=== PATIENT | male | born 1980 | race Caucasian/White ===

== ENCOUNTER 2025-05-25 11:37 | Emergency (ER) | payer OTHER, SELFPAY ==
[2025-05-25 11:38] VITALS: BP 187/103
--- NOTE | 2025-05-25 11:56 | ED.GENMED ---
History of Present Illness
General
Chief Complaint: Swallowing Problem
Source: patient
Time Seen by Provider: 05/25/25 11:49
History of Present Illness
History of Present Illness:
44-year-old male presents to the emergency room complaining of food stuck in his esophagus. Patient was eating chicken and rice about 30 minutes prior to arrival when he felt like it became stuck in his throat. He has been unable to handle his
secretions since then. The sensation is quite distressing to him. Patient has never had food stuck to this degree but has noticed food being stuck for short peers of time or going down his esophagus slowly since having his gallbladder removed 2
years ago. Patient does not take any prescription medications. He denies any allergies.
Past History
Past History
ED Past Medical History: GERD
ED Past Surgical History: None
Social History
Tobacco: Non-smoker
Alcohol: None
Drug: None
Personal:
Living: with family
Family History
Family History: Negative Diabetes, Hypertension or CAD
Phy Exam
Physical Exam
Physical Exam:
General: Awake, Alert, Oriented X3. Uncomfortable due to impacted food bolus, pacing, spitting up his secretions
Vitals: unremarkable
Head: Atraumatic
Eyes: Pupils equal, EOMI
Throat: Airway intact, no exudates
Neck: Trachea midline
Lungs: Clear and equal b/l
Heart: Regular rate, no murmurs
Abd: Soft, Nontender, No pulsatile mass
Neuro: Nonfocal
Skin: Warm, dry, no rash
Extremities: pulses equal b/l, no edema
Course
Orders/Labs/Results
Orders:
Orders
05/25/25 11:50
Glucagon [GlucaGen] 1 mg IV NOW STA
Vital Signs
Initial and Last Documented VS:
Initial Vital Signs
Temp Pulse Resp BP Pulse Ox
98.6 F 108 18 187/103 100
05/25/25 11:38 05/25/25 11:38 05/25/25 11:38 05/25/25 11:38 05/25/25 11:38
Last Documented Vital Signs
Temp Pulse Resp BP Pulse Ox
98.6 F 108 18 187/103 100
05/25/25 11:38 05/25/25 11:38 05/25/25 11:38 05/25/25 11:38 05/25/25 11:59
MDM/Problems Addressed
Differential Diagnosis Includes:
Impacted food bolus, esophageal spasm,
MDM/Problems Addressed:
Patient presents with esophageal obstruction with chicken and rice. Clearly uncomfortable on initial evaluation. However he had a wonderful response to a dose of IV glucagon. His obstruction cleared. Patient tolerating oral intake. Strongly
reinforced the need to follow-up with gastroenterology for endoscopy. Also recommended [id number] proton pump inhibitor between now and when he is able to follow-up with gastroenterology
*Pulse Oximetry
SaO2: 100
Oxygen Mode of Delivery: Room air
Patient hypoxic: no
*Critical Care Note
Total Time (30-74mins, 75-104mins- exclusive of procedures): Not Applicable
ED Attending Note
-
Portions of this chart may have been created with voice recognition software.� Occasional wrong word or��sound alike� substitutions may have occurred due to the inherent limitations of voice recognition software.
Discharge Plan
Departure
Patient Disposition: Home (Routine Discharge)
Date of Disposition: 05/25/25
Time of Disposition: 12:21
Patient with high blood pressure during this ER visit?: Yes
Condition: Good
Discharge Problem:
Food impaction of esophagus
Instructions: Food Obstruction, BLOOD PRESSURE
Prescriptions:
No Action
No Current Medications
0
Referrals:
Donnell Sharp MD [Active, Gastroenterology]
Olaf Foote MD [Family Provider, Family Practice]
Activity Restrictions/Additional Instructions:
You should call the GI office Tuesday morning to make an appointment. You will likely require another endoscopy to look for a narrowing of the esophagus. In the meantime consume very small bites and drink some liquids along with each bite. I would
also recommend taking Prilosec OTC or similar medication once a day until you follow up with GI.
Interventions
Interventions:
*Risk Screen - Suicide Last Done: 05/25/25 11:40
*General Assessment Last Done: 05/25/25 11:38
*Neglect/Abuse Screening Last Done: 05/25/25 11:38
*Nursing Disposition Last Done: 05/25/25 12:48
QH-Mupdgd-Gvbldbbhrg Assessment Last Done: 05/25/25 11:55
ED- Pulmonary Assessment Last Done: 05/25/25 11:55
Discharge Date and Time
Discharge Date/Time: 05/25/25 12:48
Print Language: IRANIAN
== END 2025-05-25 12:48 | disposition home or self-care (01) ==
LOC: EMR 11:37
PROVIDERS: EMERGENCY PHYSICIAN Emergency Medicine; FAMILY PHYSICIAN Family Medicine; REFERRING PHYSICIAN Specialist
DX: K22.2 Esophageal obstruction (principal); T18.128A Food in esophagus causing other injury, initial encounter; W44.F3XA Food entering into or through a natural orifice, initial encounter; R03.0 Elevated blood-pressure reading, without diagnosis of hypertension; K21.9 Gastro-esophageal reflux disease without esophagitis; Z90.49 Acquired absence of other specified parts of digestive tract
CPT/HCPCS: 99284; 96374; J1610